=== PATIENT | female | born 2000 | race Caucasian/White ===

== ENCOUNTER 2021-07-11 08:13 | Emergency (ER) | payer SELFPAY ==
[~2021-07-11] VITALS: Ht 157.5 cm; Wt 75.9 kg
[2021-07-11 08:13] VITALS: BP 142/104
== END 2021-07-11 11:45 | disposition left against medical advice (07) ==
LOC: M ED 08:13
DX: Z53.29 Procedure and treatment not carried out because of patient's decision for other reasons (principal)

== ENCOUNTER 2024-08-05 03:01 | Emergency (ER) | payer BC, SELFPAY ==
[~2024-08-05] VITALS: Ht 160 cm; Wt 78.7 kg
[2024-08-05 03:04] VITALS: TEMP 97.6
[2024-08-05] MEDS ORDERED: ESCITALOPRAM (03:07)
[2024-08-05] MEDS ORDERED: LISI5TAB11 (03:07)
[2024-08-05] MEDS ORDERED: PRED20TA (03:07)
[2024-08-05] MEDS ORDERED: AMOX875T (03:10)
[2024-08-05 03:49] LABS: VENOUS BASE EXCESS -1.7 (-2.0-2.0); VENOUS HCO3 23.2 MMOL/L (23.0-27.0); VENOUS PARTIAL PRESSURE CO2 40.2 mmHg (38.0-50.0); VENOUS PARTIAL PRESSURE O2 43.1 mmHg (30.0-50.0); VENOUS PH 7.379 UNITS (7.330-7.430); VENOUS STANDARD HCO3 22.5 MMOL/L; VENOUS TOTAL CO2 24.4 MMOL/L (24.0-28.0)
[2024-08-05 03:53] LABS: BASO % 0.5 % (0.0-1.0); EOS % 0.1 % (0.0-3.0); HEMATOCRIT 43.3 % (36.0-47.0); HEMOGLOBIN 14.5 g/dl (12.0-15.5); LYMPH # 1.8 10^3/uL (1.5-5.0); LYMPH % 22.3 % (24.0-44.0); MEAN CORPUSCULAR HEMOGLOBIN 32.6 pg (27.0-33.0); MEAN CORPUSCULAR HGB CONC 33.5 g/dl (32.0-36.5); MEAN CORPUSCULAR VOLUME 97.3 fl (80.0-96.0); MONO # 0.3 10^3/uL (0.0-0.8); MONO % 4.3 % (2.0-8.0); NEUTROPHILS # 5.8 10^3/uL (1.5-8.5); PLATELET COUNT, AUTOMATED 326 10^3/uL (150-450); RED BLOOD COUNT 4.45 10^6/uL (4.00-5.40)
[2024-08-05 04:21] LABS: HCG, SERUM QUALITATIVE NEGATIVE (NEGATIVE)
[2024-08-05 04:22] LABS: ALBUMIN 4.1 G/DL (3.2-5.2); ALKALINE PHOSPHATASE 81 U/L (46-116); ALT/SGPT 23 U/L (7.0-40); AST/SGOT 16 U/L (<34); BILIRUBIN,DIRECT < 0.1 MG/DL (<0.4); BILIRUBIN,TOTAL 0.2 MG/DL (0.3-1.2); BLOOD UREA NITROGEN 6 MG/DL (9-23); CALCIUM LEVEL 9.3 MG/DL (8.5-10.1); CARBON DIOXIDE LEVEL 25 MMOL/L (20-31); CHLORIDE LEVEL 108 MMOL/L (98-107); CREATININE FOR GFR 0.57 MG/DL (0.55-1.30); GLOMERULAR FILTRATION RATE > 60.0 (>60); GLUCOSE, FASTING 99 MG/DL (60-100); POTASSIUM SERUM 3.7 MMOL/L (3.5-5.1); SODIUM LEVEL 142 MMOL/L (136-145); TOTAL PROTEIN 8.1 G/DL (5.7-8.2)
[2024-08-05 04:31] VITALS: BP 157/102
[2024-08-05 05:30] VITALS: O2SAT 99
[2024-08-05] MEDS ORDERED: BENZ200C70 PO (05:40)
[2024-08-05] MEDS: BENZONATATE 100MG CAPSULE PO ONE (06:09)
[2024-08-05] MEDS: ALBUTEROL 90 MCG/ACT 8GM HFA INHALER INH ONE (06:10)
== END 2024-08-05 06:17 | disposition home or self-care (01) ==
LOC: M ED 03:01
DX: J20.9 Acute bronchitis, unspecified (principal); R94.31 Abnormal electrocardiogram [ECG] [EKG]; I10 Essential (primary) hypertension; F17.290 Nicotine dependence, other tobacco product, uncomplicated; F10.10 Alcohol abuse, uncomplicated; Z79.2 Long term (current) use of antibiotics; Z79.52 Long term (current) use of systemic steroids; Z79.899 Other long term (current) drug therapy

== ENCOUNTER → 2024-08-20 | Outpatient (CLI) | payer BC ==
[~2024-08-20] MED LIST: AMOX875T; BENZ200C70 PO; ESCITALOPRAM; LISI5TAB11; PRED20TA
[2024-08-20 17:32] LABS: HEMATOCRIT 38.1 % (36.0-47.0); HEMOGLOBIN 12.7 g/dl (12.0-15.5); MEAN CORPUSCULAR HEMOGLOBIN 32.9 pg (27.0-33.0); MEAN CORPUSCULAR HGB CONC 33.3 g/dl (32.0-36.5); MEAN CORPUSCULAR VOLUME 98.7 fl (80.0-96.0); PLATELET COUNT, AUTOMATED 283 10^3/uL (150-450); RED BLOOD COUNT 3.86 10^6/uL (4.00-5.40); WHITE BLOOD COUNT 6.5 10^3/uL (4.0-10.0)
[2024-08-20 17:43] LABS: HEMOGLOBIN A1c 4.8 % (4.0-6.0)
[2024-08-20 18:02] LABS: THYROID STIMULATING HORMONE 1.077 uIU/ML (0.55-4.78)
[2024-08-20 18:12] LABS: ALBUMIN 3.9 G/DL (3.2-5.2); ALKALINE PHOSPHATASE 55 U/L (46-116); ALT/SGPT 23 U/L (7.0-40); AST/SGOT 15 U/L (<34); BILIRUBIN,TOTAL 0.3 MG/DL (0.3-1.2); BLOOD UREA NITROGEN 10 MG/DL (9-23); CALCIUM LEVEL 9.6 MG/DL (8.5-10.1); CARBON DIOXIDE LEVEL 22 MMOL/L (20-31); CHLORIDE LEVEL 109 MMOL/L (98-107); CHOLESTEROL LEVEL 176 MG/DL (<200); CHOLESTEROL RISK RATIO 3.46 (<5); CREATININE FOR GFR 0.68 MG/DL (0.55-1.30); GLOMERULAR FILTRATION RATE > 60.0 (>60); GLUCOSE, FASTING 92 MG/DL (60-100); HDL CHOLESTEROL 50.8 MG/DL (>40); NON-HDL-C 125.2 MG/DL; POTASSIUM SERUM 3.8 MMOL/L (3.5-5.1); SODIUM LEVEL 141 MMOL/L (136-145); TOTAL PROTEIN 7.5 G/DL (5.7-8.2); TRIGLYCERIDES LEVEL 136 MG/DL (<150)
== END ==
LOC: M WUC 12:45
PROVIDERS: ATTEND Physician Assistant
DX: I10 Essential (primary) hypertension (principal)

== ENCOUNTER 2024-09-03 16:49 | Emergency (ER) | payer BC ==
[~2024-09-03] VITALS: Ht 157.5 cm; Wt 78.4 kg
[2024-09-03 16:53] VITALS: BP 157/95; TEMP 97.1; O2SAT 99
[2024-09-03] MEDS ORDERED: BUPR150T12 (16:55)
[2024-09-03] MEDS ORDERED: LISI10TA22 (16:55)
== END 2024-09-03 17:30 | disposition left against medical advice (07) ==
LOC: M ED 16:49
DX: Z53.21 Procedure and treatment not carried out due to patient leaving prior to being seen by health care provider (principal)